=== PATIENT | female | born 1995 | race Caucasian/White ===

== ENCOUNTER → 2023-10-27 | Outpatient (REF) | payer OTHER | LOC: M SFHCADAM 14:09 | PROVIDERS: ATTEND Physician Assistant | DX: Z79.899 Other long term (current) drug therapy (principal) ==

== ENCOUNTER → 2024-01-01 | Outpatient (REF) | payer OTHER | LOC: M SFHCDERM 13:16 | PROVIDERS: ATTEND Physician Assistant | DX: L01.00 Impetigo, unspecified (principal) ==